=== PATIENT | male | born 1975 | race Hispanic/Latino ===

== ENCOUNTER 2018-04-28 20:36 | Emergency (ER) | payer OTHER ==
[~2018-04-28] VITALS: Ht 182.9 cm; Wt 117.9 kg
[2018-04-28] MEDS ORDERED: SILVER NITRATE SWABS TOP ONE (22:00)
[2018-04-28] MEDS ORDERED: DIPHTH/TETANUS/ACEL. PERTUSSIS 0.5 ML SYR IM ONE (22:00)
[2018-04-28] MEDS ORDERED: BACITRACIN ZINC 15 GM OINT TOP SCH (22:00)
[2018-04-28 22:06] VITALS: BP 156/88
== END 2018-04-28 21:24 | disposition home or self-care (01) ==
LOC: FSED 20:36
DX: S60.312A Abrasion of left thumb, initial encounter (principal); W26.0XXA Contact with knife, initial encounter; Y92.000 Kitchen of unspecified non-institutional (private) residence as the place of occurrence of the external cause
CPT/HCPCS: 99283